=== PATIENT | female | born 1965 | race American Indian/Alaskan Native ===

== ENCOUNTER → 2024-05-02 | Outpatient (CLI) | payer MEDICARE, MEDICAID, SELFPAY ==
--- NOTE | 2024-05-02 09:00 | XR_ITS ---
Examination: Breast ultrasound complete, bilateral Date and time of exam: May 02, 2024 0951 hours INDICATIONS: Screening examination Technique: Real-time grayscale ultrasonographic imaging bilateral breasts, including all 4 quadrants as well as nipple retroareolar and axillary regions. Findings: Sonographic images right breast 11 x 10 mm cyst Retroareolar cyst 11 x 8 mm No solid nodules Sonographic images left breast 12:00 cyst 10 x 8 mm 12:00 cyst 6 x 6 mm No solid nodules Dilated ducts throughout the breasts IMPRESSION: BI-RADS Category 2: Benign findings Consider mammography follow-up
--- NOTE | 2024-05-02 10:00 | XR_ITS ---
Examination: Diagnostic digital mammography, bilateral Computer aided detection 3-D breast Tomosynthesis, bilateral Date and time of exam: May 02, 2024 1006 hours Compared to mammograms dating to May 06, 2005 INDICATIONS: History breast biopsies Technique: Nonmagnified MLO, CC views of the breasts to been obtained, reconstructed from 3-D Tomosynthesis images. R2 computer aided detection program utilized for evaluation of suspicious masses and/or abnormal calcifications. 3-D Tomosynthesis images obtained. Findings: The breasts are heterogeneously dense, which may obscure small masses Breast biopsy markers upper outer right breast Numerous bilateral calcifications No suspicious nodules Impression: BI-RADS Category 2: Benign findings Return to yearly follow-up mammography.
== END | disposition home or self-care (01) ==
LOC: CDIM 09:13
PROVIDERS: PCP Physician Assistant; Referring Provider Physician Assistant; Visit Provider Physician Assistant
DX: R92.323 Mammographic fibroglandular density, bilateral breasts (principal); R92.1 Mammographic calcification found on diagnostic imaging of breast; N60.01 Solitary cyst of right breast; N60.02 Solitary cyst of left breast
CPT/HCPCS: 76641; 77062; 77066; G0279

== ENCOUNTER → 2024-05-27 | Outpatient (CLI) | payer MEDICARE, MEDICAID, SELFPAY ==
--- NOTE | 2024-05-27 | XR_ITS ---
Examination: Hand, right 3 views Technique: Hand AP, oblique, lateral 3 views Date and time of exam: May 27, 2024 1138 hours INDICATIONS: Injury to the hand 2 weeks ago with first digit pain. 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
== END | disposition home or self-care (01) ==
LOC: CDIM 11:19
PROVIDERS: PCP Physician Assistant; Referring Provider Nurse Practitioner Gerontology; Visit Provider Nurse Practitioner Gerontology
DX: M19.041 Primary osteoarthritis, right hand (principal)
CPT/HCPCS: 73130

== ENCOUNTER → 2024-07-19 | Outpatient (CLI) | payer MEDICARE, MEDICAID, SELFPAY ==
--- NOTE | 2024-07-19 14:19 | XR_ITS ---
Examination: Hand, left 3 views Technique: Hand AP, oblique, lateral 3 views Date and time of exam: July 19, 2024 1515 hours INDICATIONS: Injury to the left hand today, hand pain FINDINGS: Moderate osteopenia Acute spiral fractures mid to distal fifth metacarpal without significant displacement IMPRESSION: Acute fractures fifth metacarpal
== END | disposition home or self-care (01) ==
LOC: CDIM 14:00
PROVIDERS: PCP Internal Medicine; Referring Provider Internal Medicine; Visit Provider Internal Medicine
DX: S62.307A Unspecified fracture of fifth metacarpal bone, left hand, initial encounter for closed fracture (principal); X58.XXXA Exposure to other specified factors, initial encounter
CPT/HCPCS: 73130

== ENCOUNTER 2024-08-26 07:15 | Day surgery (SDC) | payer MEDICARE, MEDICAID, SELFPAY ==
--- NOTE | 2024-08-22 10:10 | EKG_ITS ---
[facility] Test Date: 2024-08-22 Pat Name: BILL VALENTIN Department: Room: - Gender: Female Coat Room Attendant: SHUKRI : 1965 Requested By: Jaya Beltran Order Number: [id number] Reading MD: Jaay Beltran Measurements Intervals [place] Rate: 61 P: 26 IN: 156 QRS: 38 QRSD: 92 T: 55 QT: 401 QTc: 405 Interpretive Statements SINUS RHYTHM No previous ECG available for comparison /store/S0/[id number]/ecg/[id number].pdf
[2024-08-22 10:19] VITALS: BMI 37.7
[2024-08-22 11:33] LABS: Collection Type, Urine Clean Catch
[2024-08-22 11:51] LABS: Basophils % (Auto) 0 % (0-2.5); Eosinophils # (Auto) 0.2 Thou/mm3 (0.0-0.5); Eosinophils % (Auto) 2 % (0-10); Hematocrit 41.8 % (36.0-46.0); Hemoglobin 14.3 g/dL (12.0-16.0); Immature Granulocytes % (Auto) 0 % (0-0); Immature Granulocytes Auto 0.03 Thou/mm3 (0.00-0.00); Lymphocytes # (Auto) 3.1 Thou/mm3 (1.0-4.8); Lymphocytes % (Auto) 34 % (10-50); Mean Corpuscular HGB Conc 34.2 g/dl (31.0-37.0); Mean Corpuscular Hemoglobin 29.8 pg (25.0-35.0); Mean Corpuscular Volume 87 fL (80-100); Monocytes # (Auto) 0.6 Thou/mm3 (0.0-0.8); Monocytes % (Auto) 7 % (0-12); Neutrophils # (Auto) 5.2 Thou/mm3 (1.8-7.7); Neutrophils % (Auto) 57 % (37-80); Nucleated Red Blood Cell % 0 /100 WBC (0); Platelet Count 232 Thou/mm3 (140-440); RDW Standard Deviation 41.4 fL (36.4-46.3); White Blood Count 9.1 Thou/mm3 (3.6-11.0)
[2024-08-22 11:58] LABS: Partial Thromboplastin Time 27.3 Seconds (22.0-36.0)
[2024-08-22 12:10] LABS: Alanine Aminotransferase 27 U/L (10-49); Albumin, Serum 4.5 gm/dL (3.5-5.0); Albumin/Globulin Ratio 1.3 (1.2-2.2); Alkaline Phosphatase 74 U/L (46-116); Anion Gap 10 (7-16); Aspartate Amino Transferase 26 U/L (0-34); BUN/Creatinine Ratio 20 Ratio (12-20); Blood Urea Nitrogen 16 mg/dL (9-23); Calcium 9.5 mg/dL (8.3-10.6); Calcium (Corrected) 9.5 mg/dL (8.5-10.1); Chloride 105 mMol/L (98-107); Creatinine (Component) 0.8 mg/dL (0.6-1.3); Estimated Creatinine Clearance 74.6 mL/min (>60); Globulin 3.4 gm/dL (2.3-3.5); Glucose 85 mg/dL (74-106); Osmolality,Calculated 279 (275-295); Potassium 4.1 mMol/L (3.4-5.1); Sodium 140 mMol/L (136-145); Total Protein 7.9 gm/dL (5.7-8.2); eGFR > 60 See Note
[2024-08-22 14:29] LABS: Bilirubin,Urine Negative (Negative); Blood,Urine Trace (Negative); Clarity,Urine Clear (Clear/Hazy); Color,Urine Yellow (Lt Yel-Yel); Glucose, Urine Negative (Negative); Ketones,Urine Negative (Negative); Leukocyte Esterase,Urine Positive (Negative); Nitrite,Urine Negative (Negative); PH,Urine 5.5 (5.0-7.0); Protein,Urine Trace (Neg - Trace); RBC,Urine 10 /hpf (0-3); Specific Gravity,Urine 1.034 (1.001-1.035); Squamous Epithelial Cell,Urine < 1 /hpf (0-5); Urobilinogen,Urine Negative mg/dL (0.0-1.0); WBC,Urine 8 /hpf (0-5)
[2024-08-22 14:53] LABS: Sperm,Urine Present
[2024-08-26] VITALS (7 sets, daily range): BP systolic 116–147; BP diastolic 67–88; PULSE 61–88; RESP 16–20; TEMP 36.2–36.4; O2SAT 95–98; BMI 37.9
--- NOTE | 2024-08-26 08:03 | SUR.PREOP ---
Patient expressed gratitude for prayer before their procedure.
--- NOTE | 2024-08-26 11:29 | ESOP_ITS ---
Date of Procedure 08/26/24 Pre Op Diagnosis Cholecystitis cholelithiasis Post Op Diagnosis Same. Procedure Laparoscopic cholecystectomy on 08/26/2024 Findings This patient had a cholecystitis cholelithiasis and had adhesions of the omentum to the gallbladder. The gallstone was very large. There is small amount of spillage of the bile. The stones did not spill out. There were no other f indings. Procedure Description In the preop area the procedure was discussed with the patient including risks benefits and alternatives. The risks include possible laparotomy, bleeding, infection bile duct injury and bile leak. Patient may require ERCP for retained stone or a bile leak. The anesthesia risks are to be explained to the patient by the anesthesiologist. Informed consent was obtained. The patient was positioned supine on the operating table and general anesthesia was administered in a satisfactory manner by the anesthesiologist. The patient is positioned in the reverse Trendelenburg position with the right side up. Orogastric tube is introduced into the stomach to decompress the stomach. Prophylactic antibiotics were given in timely manner. Antiembolism measures were taken. The abdomen chest and groin regions were prepped and draped in usual manner. A supraumbilical verticle incision was made and deepened through the layers of abdominal wall and open laparoscopic procedure is carried out. The balloon catheter was introduced and pneumoperitoneum is achieved. A 30? scope was used. Under direct vision right subxiphoid, midclavicular and anterior axillary line trochars were introduced. The gallbladder is then lifted up and a laparoscopic lysis of adhesions was carried out. The gallbladder is freed from the adhesions and the oscar hepatis is exposed. The triangle of Calot is gently dissected and the artery to cystic duct is divided with harmonic ultrasonic gene. The posterior view of safety was achieved. The cystic artery and cystic duct are identified individually and they were ligated close to the gallbladder with hemoclips. There was an accessory cystic artery as well as multiple branches of the cystic artery proper. They were all individually controlled and divided. The cystic artery and the cystic duct are divided between the hemoclips close to the gallbladder. Care was taken to avoid tenting of the common duct. There is a significant length of cystic duct stump towards the common bile duct. The gallbladder is dissected and lifted from the liver bed using harmonic ultrasonic gene. The gallbladder bed hemostasis is achieved. The gallbladder is retrieved out of the peritoneal cavity in a specimen bag. The balloon cannula is reintroduced and pneumoperitoneum is reestablished. The peritoneal cavity is thoroughly irrigated with sterile saline solution and hemostasis again ascertained. All the cannulas are removed under direct vision there is no bleeding from the cannula sites. The linea alba repair is carried out with the 0 Vicryl continuous suture. The subcutaneous tissues approximated by a 3-0 chromic and skin by 4-0 monocril subcuticular stitch. For the rest of the trocar site incisions are closed in 2 layers with a 3-0 chromic and 4-0 monocril subcuticular stitch. Steri-Strips are applied. Sterile dressings are applied. Complications none estimated loss of blood 10 mL Patient is transferred to the recovery room in a satisfactory condition. Anesthesia GETA Drains None. Implants None. Pathology / specimen Other (Gallbladder with contents) Estimated Blood Loss 5 Condition Stable Disposition PACU Surgeon Jaya Beltran MD Surgical Staff Operation Date: 08/26/24 10:00 Case Staff Anesthesiologist: Jesús Lucio RN First Assistant: Celeste Pressley RN fish and wildlife biologist Ruperto ANDRADEsurgical brace maker Melissa surgical appliance fitter
--- NOTE | 2024-08-26 11:43 | SUR.PHASEI ---
pt received from OR in recovery bay 2. pt obtunded, breathing unlabored on oxymask 8l, oral airway in place. v/s stable. pt dressing to abd x4 cdi. report received from Dr. Lucio and Blaine ANDRADE.
[2024-08-26] MEDS: ONDANSETRON INJ 2 MG/ML INJ 2 ML 4 MG IV (12:15)
--- NOTE | 2024-08-26 12:23 | SUR.PHASEII ---
pt able to tolerate oral fluids without difficulty swallowing or nasuea/vomiting.
[2024-08-26] MEDS: fentaNYL CIT INJ 50 mCg/ML AMP 2ML 25 MCG IV (12:26)
--- NOTE | 2024-08-26 12:46 | SUR.PHASEII ---
pt awake and alert, breathing unlabored on room air. v/s stable. pt dressing to abd x4 cdi. pt able to ambualte to wheelchair with steady gait. d/c instructions given with s/o Jax in room, all questions answered. pt d/c via wheelchair with all belongings.
== END 2024-08-26 12:46 | disposition home or self-care (01) ==
PROVIDERS: Absent Provider Specialist; PCP Physician Assistant; Referring Provider Specialist; Visit Provider Specialist
PROC: 0FT44ZZ Resection of Gallbladder, Percutaneous Endoscopic Approach (ICD-10-PCS; CPT 47562; principal; 2024-08-26 09:45)
DX: K80.10 Calculus of gallbladder with chronic cholecystitis without obstruction (principal); Z01.810 Encounter for preprocedural cardiovascular examination
CPT/HCPCS: 47562; 36415; 80053; 81001; 85025; 85610; 85730; 93005; A4217; A4649; J0131; J0690; J0694; J1100; J2250; J2371; J2405; J2704; J3010; J3490

== ENCOUNTER → 2024-09-11 | Outpatient (CLI) | payer MEDICARE, MEDICAID, SELFPAY ==
--- NOTE | 2024-09-11 10:46 | XR_ITS ---
Examination: Wrist, left 3 views Technique: Wrist AP, oblique, lateral 3 views Date and time of exam: September 11, 2024 1138 hours Comparison July 19, 2024 INDICATIONS: acute fracture fifth metacarpal July 19, 2024 FINDINGS: Significant healing fracture fifth metacarpal with stable and satisfactory alignment IMPRESSION: Significant healing fracture fifth metacarpal with stable and satisfactory alignment
--- NOTE | 2024-09-11 10:46 | XR_ITS ---
Examination: Hand, left 3 views Technique: Hand AP, oblique, lateral 3 views Date and time of exam: September 11, 2024 at 11:38 AM Comparison July 19, 2024 INDICATIONS: Acute fracture fifth metacarpal July 19, 2024 FINDINGS: Significant healing fracture fifth metacarpal with stable and satisfactory alignment IMPRESSION: Significant healing fracture fifth metacarpal with stable and satisfactory alignment
== END | disposition home or self-care (01) ==
PROVIDERS: PCP Physician Assistant; Referring Provider Nurse Practitioner Gerontology; Visit Provider Nurse Practitioner Gerontology
DX: S62.307A Unspecified fracture of fifth metacarpal bone, left hand, initial encounter for closed fracture (principal); X58.XXXA Exposure to other specified factors, initial encounter
CPT/HCPCS: 73110; 73130

== ENCOUNTER 2025-04-01 09:10 | Day surgery (SDC) | payer MEDICARE, MEDICAID, SELFPAY ==
[2025-03-31 14:18] VITALS: BMI 36.1
[2025-04-01] VITALS (9 sets, daily range): BP systolic 108–144; BP diastolic 65–88; PULSE 60–79; RESP 12–19; TEMP 36.2–36.3; O2SAT 94–99; BMI 36.1
[2025-04-01] MEDS: RINGERS LACTATED 1000 ML 1,000 ML 60 ML IV (12:45)
[2025-04-01] MEDS: BENZOCAINE 20% (Hurricaine) SPRAY 1 DOSE TOP (12:55)
--- NOTE | 2025-04-01 13:06 | SUR.PHASEII ---
patient into recovery with no acute distress noted, v/s stable, no complaints of pain or nausea at this time. report received from Obed ANDRADE.
--- NOTE | 2025-04-01 13:53 | SUR.PHASEII ---
patient sitting in wheelchair waiting for ride home arrival. patient is drinking water, denies pain and nausea at this time.
--- NOTE | 2025-04-01 14:20 | SUR.PHASEII ---
discharge instructions given by Breonna ANDRADE. Patient discharged Home.
== END 2025-04-01 14:20 | disposition home or self-care (01) ==
PROVIDERS: PCP Physician Assistant; Referring Provider Specialist; Visit Provider Specialist
PROC: (CPT 43239; principal; 2025-04-01 11:30)
DX: Z13.810 Encounter for screening for upper gastrointestinal disorder (principal); K21.00 Gastro-esophageal reflux disease with esophagitis, without bleeding; K29.50 Unspecified chronic gastritis without bleeding
CPT/HCPCS: 43239; A4649; J1200; J2250; J3010; J7120; A9270